=== PATIENT | male | born 1995 | race Caucasian/White ===

== ENCOUNTER 2016-11-06 12:20 | Day surgery (SDC) | payer OTHER ==
--- NOTE | ~2016-11-06 | CT4 ---
[facility] A Service of [facility] RADIOLOGY TEXT RESULTS PATIENT: CHRISTINE AGUERO LOCATION: [facility] : [birth year] UNIT #: [id number] AGE: [address]: Angelito Chen III, MD SEX: M ORDER DR: [id number] [facility] [address] [place], [place] [address] [id number] MR#: [id number] Acc #: [id number] NAME: CHRISTINE AGUERO : 1995 SEX: M STUDY DATE/TIME: 11/06/2016 13:07 UNIT: [id number] ROOM: STUDY DESCRIPTION: CT Abd and Pelv Wo Cont Attending Physician: Angelito Chen III, M.D. Ordering Physician: Josep Jones M.D. Primary Care Physician: Primary Care Physician No MEDICAL IMAGING REPORT This report is preliminary unless electronic signature is present EXAM CT abdomen and pelvis without IV contrast COMPARISON None. INDICATION 20-year-old male with epigastric abdominal pain since this morning. TECHNIQUE This CT examination was performed with one or more of the following radiation dose reduction techniques: automatic exposure control, adjustment of mA and/or kV according to patient size, and iterative reconstruction. FINDINGS Axial CT imaging of the abdomen and pelvis was performed. Lack of IV contrast limits evaluation of adenopathy, vasculature and viscera. Bones are within normal limits. No acute findings in the lower chest. Unenhanced liver, gallbladder, pancreas, spleen, adrenal glands and kidneys are unremarkable. There is no hydronephrosis or hydroureter. No renal or ureteral calculi. Urinary bladder and prostate gland are unremarkable. There is a small amount of free fluid in the pelvis of uncertain etiology. There is no bowel obstruction. Normal caliber of the abdominal aorta. No pneumoperitoneum. No adenopathy. A few scattered prominent pericecal lymph nodes without pathologic enlargement by CT size criteria. The appendix actually drapes into the midline pelvis and is abnormally thickened and edematous and is likely the etiology of the patient's pelvic free fluid. The appendix measures up to 1.3 cm in caliber. IMPRESSION Findings most consistent with an acute appendicitis. Please note that the appendix is in the midline abdomen drooping down into the pelvis and there [facility]. [facility] A Service of [facility] RADIOLOGY TEXT RESULTS PATIENT: CHRISTINE AGUERO LOCATION: [facility] : [birth year] UNIT #: [id number] AGE: [address]: Angelito Chen III, MD SEX: M ORDER DR: is some associated free fluid. No pneumatosis or pneumoperitoneum. Dictated by... Claudy Espinoza M.D. THIS IS AN ELECTRONICALLY VERIFIED REPORT Claudy Espinoza M.D. at 11/08/2016 4:14 PM TODD/jennifer TD: 11/07/2016 06:22 JOB #: [id number] MEDICAL IMAGING REPORT Page 1 of 1 COPY
--- NOTE | ~2016-11-06 | OR ---
Unit #: [id number] #: [id number] Patient: CHRISTINE AGUERO [id number] [address] [address] [id number] Zo MR#: [id number] NAME: CHRISTINE AGUERO ROOM: 67639 Date of Procedure: 11/06/2016 Admission Date: 11/06/2016 Surgeon: Angelito Chen III, M.D. : 1995 Attending Physician: Angelito Chen III, M.D. Primary Care Physician: Primary Care Physician No OPERATIVE REPORT PREOPERATIVE DIAGNOSIS Acute appendicitis. POSTOPERATIVE DIAGNOSIS Acute appendicitis. PROCEDURE PERFORMED Laparoscopic appendectomy. ANESTHESIA General. SPECIMENS Appendix to Pathology. COMPLICATIONS None apparent. ESTIMATED BLOOD LOSS Minimal. INDICATIONS FOR PROCEDURE This is a 20-year-old gentleman, who presented with right lower quadrant pain and CT scan which confirmed appendicitis. He is here today for laparoscopic appendectomy. DESCRIPTION OF PROCEDURE After consent was obtained, the patient was brought to the operating room and placed in the supine position. General anesthetic was administered. His abdomen was prepped and draped in standard surgical fashion. I made a 1 cm incision just above the umbilicus. I elevated the fascia between 2 Jeremy clamps and used a Veress needle to obtain CO2 pneumoperitoneum. Next, a 5-mm trocar was placed in that location. I then placed a 12-mm port in the right lateral abdomen and a 5-mm port in the suprapubic region. I was able to easily identify the cecum and the appendix. I scored some lateral peritoneal attachments to mobilize the base of the appendix. Once this was done, I created a window at the base of the appendix and the mesoappendix. I fired a blue load with the MELISSA stapler across the base of the appendix and a white load across the mesoappendix. I then placed the appendix in an EndoCatch bag and retrieved it through the right lateral port incision. Hemostasis was excellent. All needle, sponge, and instrument counts were correct x2. I removed all the trocars Unit #: [id number] #: [id number] Patient: CHRISTINE AGUERO and released the pneumoperitoneum. I injected all port sites with 0.25% plain Marcaine. I reapproximated the fascial edges of the right lateral port incision with an interrupted 0 Vicryl suture. The skin edges were reapproximated with interrupted 4-0 Vicryl subcuticular suture. Steri-Strips were then applied. The patient tolerated the procedure without any problems and returned to the recovery room in stable condition. Dictated by... Angelito Chen III, M.D. VCL/ravi TD: 11/07/2016 08:46 JOB #: [id number] OPERATIVE REPORT Page 1 of 1 X Angelito Chen III, MD X PROCEDURE OPERATIVE NOTE
--- NOTE | ~2016-11-06 | HP ---
Unit #: [id number] #: [id number] Patient: CHRISTINE AGUERO [id number] [address] [address] [id number] Zo MR#: [id number] NAME: CHRISTINE AGUERO ROOM: [id number] Age: 20 Sex: M Admission Date: 11/06/2016 : 1995 Attending Physician: Angelito Chen III, M.D. Primary Care Physician: No Primary Care Physician HISTORY AND PHYSICAL CHIEF COMPLAINT Abdominal pain. HISTORY OF THE PRESENT ILLNESS This is a 20-year-old gentleman who presented with right lower quadrant pain for approximately 12 hours. He denies any nausea or vomiting. He says the pain is sharp and progressively getting worse. It started at the epigastric region and migrated to the right lower quadrant. PAST MEDICAL HISTORY Negative. PAST SURGICAL HISTORY He has had a tonsillectomy. MEDICATIONS He is on no home medications. ALLERGIES Has no known drug allergies. SOCIAL HISTORY He denies any tobacco or alcohol use. FAMILY HISTORY Negative for cancer. REVIEW OF SYSTEMS Negative for fevers, weight loss, nausea, vomiting. No change in bowel habits. Otherwise as above. PHYSICAL EXAMINATION VITAL SIGNS: Temperature is 97.6, heart rate 75, respiratory rate 16, blood pressure is 132/73. GENERAL: He is in no acute distress. HEENT: Pupils are equal, reactive to light and accommodation. His extraocular muscles are intact. NECK: Without masses or bruits. LUNGS: Show good breath sounds bilaterally with equal air exchange. CARDIAC EXAM: Shows regular rate and rhythm without murmur. ABDOMEN: Soft, with 2 to 3+ tenderness in the right lower quadrant. EXTREMITIES: Without edema or cyanosis. NEUROLOGICAL EXAM: He is alert and oriented. There are no focal deficits. Unit #: [id number] #: [id number] Patient: CHRISTINE AGUERO DIAGNOSTIC STUDIES LABORATORY: White blood count is 15,000. IMAGING: CT scan showed appendicitis. OVERALL IMPRESSION This is a 20-year-old gentleman who has acute appendicitis. I discussed with him proceeding with laparoscopic appendectomy, possible open. We discussed the complications of bleeding and postop infection. He understands those and wishes to proceed. Dictated by Agnelito Chen III, M.D. VCL/df TD: 11/07/2016 08:38 JOB #: [id number] HISTORY AND PHYSICAL Page 1 of 1 X Angelito Chen III, MD HISTORY AND PHYSICAL
[2016-11-06 12:11] LABS: URINE SOURCE CLEAN CATCH
[2016-11-06 12:17] LABS: URINE APPEARANCE CLEAR; URINE BILIRUBIN NEG (NEG); URINE BLOOD NEG (NEG); URINE COLOR YELLOW; URINE GLUCOSE NEG (NEG); URINE KETONE NEG (NEG); URINE LEUKOCYTE ESTERASE NEG (NEG); URINE NITRATE NEG (NEG); URINE PH 8.5 (5-8); URINE PROTEIN NEG (NEG); URINE SPECIFIC GRAVITY 1.015 (1.003-1.035); URINE UROBILINOGEN 0.2 MG/DL (NEG)
[2016-11-06 12:26] LABS: CULTURE INDICATED? NO
[2016-11-06 12:52] LABS: BASOPHIL% 0.3 % (0-2.5); EOSINOPHIL# 0.1 X10e3 (0-0.7); EOSINOPHIL% 0.7 % (0.0-7.0); HEMATOCRIT 44.3 % (38.0-50.0); HEMOGLOBIN 14.8 gm/dL (13.0-16.0); LYMPHOCYTE# 1.2 X10e3 (1.0-3.5); LYMPHOCYTE% 8.2 % (17.0-45.0); MEAN CELL VOLUME 80.5 FL (83-96); MEAN CORPUSCULAR HEMOGLOBIN 26.9 PG (28-34); MEAN CORPUSCULAR HGB CONC 33.4 g/dL (30-36); MEAN PLATELET VOLUME 8.7 FL (6.5-11.5); MONOCYTE# 1.3 X10e3 (0-1.0); MONOCYTE% 8.6 % (3.0-12.0); NEUTROPHIL# 12.3 X10e3 (1.5-7.1); NEUTROPHIL% 82.2 % (40-75); PLATELET COUNT 195 X10e3 (140-420); RED BLOOD COUNT 5.51 X10e (3.90-5.60); RED CELL DISTRIBUTION WIDTH 13.5 % (11.0-15.5)
[2016-11-06 12:53] LABS: DIFF IND NO
[2016-11-06 12:57] LABS: ALBUMIN SERUM 5.1 g/dL (3.5-5.0); BILIRUBIN, DIRECT 0.1 mg/dL (0.0-0.2); BILIRUBIN,INDIRECT 0.8 mg/dL (0.0-0.9); BILIRUBIN,TOTAL 0.9 mg/dL (0.2-2.0); CALCIUM SERUM 9.7 mg/dL (8.4-10.2); CREATININE SERUM 0.7 mg/dL (0.6-1.4); GLOM FILT RATE Estimated 136.9 mL/min (>60); POTASSIUM 3.9 mmol/L (3.5-5.1); PROTEIN TOTAL SERUM 8.4 g/dL (6.0-8.3)
[2016-11-07 01:00] LABS: BASOPHIL% 0.2 % (0-2.5); EOSINOPHIL% 0.1 % (0.0-7.0); HEMATOCRIT 44.1 % (38.0-50.0); HEMOGLOBIN 14.5 gm/dL (13.0-16.0); LYMPHOCYTE# 1.4 X10e3 (1.0-3.5); LYMPHOCYTE% 8.6 % (17.0-45.0); MEAN CELL VOLUME 80.8 FL (83-96); MEAN CORPUSCULAR HEMOGLOBIN 26.5 PG (28-34); MEAN CORPUSCULAR HGB CONC 32.8 g/dL (30-36); MEAN PLATELET VOLUME 8.9 FL (6.5-11.5); MONOCYTE% 6.3 % (3.0-12.0); NEUTROPHIL# 13.5 X10e3 (1.5-7.1); NEUTROPHIL% 84.8 % (40-75); PLATELET COUNT 195 X10e3 (140-420); RED BLOOD COUNT 5.46 X10e (3.90-5.60); RED CELL DISTRIBUTION WIDTH 13.7 % (11.0-15.5); WHITE BLOOD COUNT 15.9 X10e3 (4.0-10.5)
[2016-11-07 01:01] LABS: DIFF IND YES
[2016-11-07 01:56] LABS: ANISOCYTOSIS SL; PLATELET ESTIMATE NORMAL (NORMAL)
== END 2016-11-07 07:14 | disposition home or self-care (01) ==
LOC: CED 12:20 → CSUR 17:56
PROVIDERS: Emergency Medicine; Surgery
DX: K35.80 Unspecified acute appendicitis (principal)
CPT/HCPCS: 36415; 74176; 80048; 80076; 81003; 82150; 83690; 85025; 88304; 96361; 96365; 96375; 99285; J0330; J1170; J2250; J2270; J2405; J2543; J2710; J3010